=== PATIENT | male | born 1980 | race Caucasian/White ===

== ENCOUNTER 2016-08-23 03:41 | Emergency (ER) | payer BC ==
[~2016-08-23] VITALS: Ht 177.8 cm; Wt 114.4 kg
[2016-08-23] MEDS ORDERED: DEXAMETHASONE 4 MG TABLET ONE (04:19)
[2016-08-23] MEDS ORDERED: DEXAMETHASONE 4 MG TABLET PO ONE (04:30)
[2016-08-23 04:41] VITALS: BP 134/82
== END 2016-08-23 04:43 | disposition home or self-care (01) ==
LOC: ED 04:37
DX: L23.7 Allergic contact dermatitis due to plants, except food (principal)
CPT/HCPCS: 99283